=== PATIENT | female | born 1970 | race Two or more races ===

== ENCOUNTER 2025-01-08 08:05 | Emergency (ER) | payer OTHER ==
[~2025-01-08] VITALS: Ht 160 cm; Wt 59.0 kg
== END 2025-01-08 10:44 | disposition home or self-care (01) ==
LOC: ER 08:08
DX: S60.212A Contusion of left wrist, initial encounter (principal); W18.30XA Fall on same level, unspecified, initial encounter; Y93.9 Activity, unspecified; Y92.018 Other place in single-family (private) house as the place of occurrence of the external cause; Y99.9 Unspecified external cause status

== ENCOUNTER 2025-02-07 08:05 | Outpatient (CLI) | payer OTHER | END 2025-02-07 08:09 | disposition home or self-care (01) | LOC: RAD 08:05 | PROVIDERS: ATTEND Orthopaedic Surgery | DX: M25.532 Pain in left wrist (principal) ==

== ENCOUNTER 2025-09-28 07:55 | Outpatient (CLI) | payer OTHER ==
[2025-09-28 08:55] LABS: URINE APPEARANCE Clear; URINE BILIRRUBIN Negative (NEGATIVE); URINE BLOOD Negative; URINE COLOR Yellow; URINE GLUCOSE Negative (NEGATIVE); URINE KETONE Negative (NEGATIVE); URINE LEUKOCYTE Small; URINE NITRATE Negative; URINE PROTEIN Negative (NEGATIVE); URINE UROBILINOGEN 0.2 E.U./dl
[2025-09-28 09:00] LABS: BASO % 0.7 % (0.1-1.2); EOS # 0.08 (0.04-0.54); EOS % 1.8 % (0.7-7.0); LYMPH # 1.15 (1.18-3.74); LYMPH % 25.4 % (19.3-53.1); MEAN PLATELET VOLUME 10.20 fl (9.4-12.4); MONO # 0.33 (0.24-0.82); MONO % 7.3 % (4.7-12.5); NEUT # 2.92 (1.56-6.13); NEUT % 64.6 % (34.0-71.1); RED CELL DISTRIBUTION WIDTH 12.4 % (11.6-14.4); URINE BACTERIA 23.9 uL (0.0-1933); URINE EPITHELIAL CELLS 2.1 uL (0.0-38.8); URINE RBC 11.2 uL (0.0-20.8); URINE WBC 5.2 uL (0.0-23.2)
[2025-09-28 09:02] LABS: ERYTHROCYTE SEDIMENTATION RATE 12 mm/hr (0-30)
[2025-09-28 09:06] LABS: URINE CAST 0.14 uL (0.0-1.40)
[2025-09-28 09:56] LABS: ALT/SGPT 26 U/L (12-78); AST/SGOT 18 U/L (15-37); BILIRUBIN TOTAL 0.36 mg/dL (0.3-1.2); BILIRUBIN,CONJUGATED < 0.10 mg/dL (0.0-0.2); BUN CREA RATIO 18 (7.0-25.0); CHOL HDL RATIO 3.0 (0-5.0); CREATININE SERUM 0.65 mg/dL (0.55-1.02); GFR 94.29; GLOBULINA 3.6 G/DL (2.4-3.5); GLUCOSE FASTING 94 mg/dL (65-100); HDL 75 mg/dl (40-60); LDL 125 mg/dl (0-130); OSMOLALITY SERUM 284 MOSM/KG (275-295); TSH 0.976 uIU/mL (0.358-3.74); VLDL 24 (0-39)
[2025-09-29 16:11] LABS: CALCIUM IONIZED 4.7 mg/dL (4.5-5.6)
== END 2025-09-28 08:04 | disposition home or self-care (01) ==
LOC: LAB 07:55
PROVIDERS: ATTEND Orthopaedic Surgery
DX: E78.5 Hyperlipidemia, unspecified (principal); I10 Essential (primary) hypertension; E78.2 Mixed hyperlipidemia; D68.9 Coagulation defect, unspecified; N40.1 Benign prostatic hyperplasia with lower urinary tract symptoms; E03.8 Other specified hypothyroidism; M06.4 Inflammatory polyarthropathy; Z85.038 Personal history of other malignant neoplasm of large intestine; Z12.11 Encounter for screening for malignant neoplasm of colon; E11.9 Type 2 diabetes mellitus without complications; E55.9 Vitamin D deficiency, unspecified; K76.9 Liver disease, unspecified; N20.0 Calculus of kidney; N39.9 Disorder of urinary system, unspecified; Z12.5 Encounter for screening for malignant neoplasm of prostate; M10.9 Gout, unspecified; R19.5 Other fecal abnormalities; N40.0 Benign prostatic hyperplasia without lower urinary tract symptoms; K90.49 Malabsorption due to intolerance, not elsewhere classified; M85.9 Disorder of bone density and structure, unspecified; E56.1 Deficiency of vitamin K; E21.3 Hyperparathyroidism, unspecified; M81.8 Other osteoporosis without current pathological fracture